=== PATIENT | female | born 1995 | race Caucasian/White ===

== ENCOUNTER 2016-08-31 07:25 | Emergency (ER) | payer OTHER ==
[2016-08-31 08:18] LABS: BILIRUBIN,URINE NEGATIVE (NEGATIVE)
[2016-08-31] MEDS ORDERED: CYCLOBENZAPRINE 10 MG TABLET PO STA (08:18)
[2016-08-31] MEDS ORDERED: LIDOCAINE PATCH 5% TOP STA (08:18)
[2016-08-31 08:21] LABS: UA w/ MICROSCOPIC CHARGE YES
[2016-08-31] MEDS ORDERED: LIDOCAINE PATCH 5% TOP ONE (08:21)
[2016-08-31] MEDS ORDERED: CYCLOBENZAPRINE 10 MG TABLET PO ONE (08:21)
[2016-08-31 08:22] LABS: HCG UR QUAL NEGATIVE
--- NOTE | 2016-08-31 08:28 | ED Physician Documentation ---
History of Present Illness - Stated complaint Stated Complaint: BACK PAIN - Chief complaint Chief Complaint: General - Additonal information Additional information: hx from pt 21 f insidious onet very low back pain L > R yesterday worsening since not relieved with motrin and papa no injury or lifting no fever no abd pain no dysuria hematuria no incont no saddle anesthesia no LE numbness weakness Review of Systems Constitutional: denies: Fever Cardiac: denies: Chest pain / pressure GI: denies: Abdominal Pain : denies: Dysuria, Incontinent, Hematuria, Now EGA Musculoskeletal: reports: Back pain Neurologic: denies: Focal weakness, Numbness Immunocompromised: denies: Immunocompromised PD PAST MEDICAL HISTORY - Past Medical History Cardiovascular: None Respiratory: None Neuro: None GI: None [employer] MANAGER: None : None HEENT: None Psych: None Musculoskeletal: None Derm: None, Other - Past Surgical History Past Surgical History: No - Present Medications Home Medications: Ambulatory Orders Medication Instructions Recorded Confirmed Cyclobenzaprine [Flexeril] 10 mg PO TID PRN #20 tablet 08/31/16 Etonogestrel/Ethinyl Estradiol 1 vag ring VG ONCE 08/31/16 08/31/16 [Nuvaring Vaginal Ring] Ibuprofen [Motrin] 400 mg PO Q6H PRN #30 tablet 08/31/16 Lidocaine Patch 5% [Lidoderm Patch] 1 each TOP DAILY PRN #10 patch 08/31/16 - Allergies Allergies/Adverse Reactions: Allergies Allergy/AdvReac Type Severity Reaction Status Date / Time No Known Drug Allergies Allergy Verified 08/31/16 07:33 - Social History Does the pt smoke?: No Smoking Status: Never smoker Does the pt drink ETOH?: No Does the pt have substance abuse?: No - Immunizations Immunizations are current?: Yes PD ED PE NORMAL - Vitals Vital signs reviewed: Yes - Neck Neck: Supple, no meningeal sign - Cardiac Cardiac: RRR - Respiratory Respiratory: No respiratory distress, Clear bilaterally - Abdomen Abdomen: Soft, Non tender - Back Back: No spinal TTP (and no focal redness swelling warmth, TTP soft tissue low lumabr near post iliac spine carlton L > R, limited ROM ext rotation), Other - Neuro Neuro: No motor deficit, No sensory deficit, Other (neg SLR, no clonus, denies saddle anesthesia) Results - Vitals Vitals: Vital Signs - 24 hr 05/16/17 07:30 Temperature 36.2 C L Heart Rate 77 Respiratory 16 Rate Blood Pressure 133/81 H O2 Saturation 100 Oxygen O2 Source Room air - Labs Labs: Laboratory Tests 08/31/16 08:12 Urine Color YELLOW Urine Clarity HAZY Urine pH 6.0 Ur Specific [place] <=1.005 Urine Protein NEGATIVE Urine Glucose (UA) NEGATIVE Urine Ketones NEGATIVE Urine Occult Blood TRACE-LYSE Urine Nitrite NEGATIVE Urine Bilirubin NEGATIVE Urine Urobilinogen 0.2 (NORMAL) Ur Leukocyte Esterase SMALL H Urine RBC 0-5 Urine WBC 6-10 H Ur Squamous Epith Cells MANY Squamous H Urine Bacteria Moderate H Ur Microscopic Review INDICATED Urine Culture Comments NOT INDICATED Urine HCG, Qual NEGATIVE PD MEDICAL DECISION MAKING - ED course ED course: seems to be atraumatic low back muscular pain with no red flags explained to pt why I do not think imaging will help UA no blood not a clean catch - doubt infection HCG neg Departure - Departure Disposition: 01 Home, Self Care Clinical Impression: Back pain Qualifiers: Back pain location: low back pain Chronicity: acute Back pain laterality: bilateral Sciatica presence: without sciatica Qualified Code(s): M54.5 - Low back pain Condition: Good Instructions: ED Neck Back Pain General Follow-Up: Rich Gilmore ARNP [Primary Care Provider] - (for a recheck if not better in 2 days) Prescriptions: Cyclobenzaprine [Flexeril] 10 mg PO TID PRN #20 tablet PRN Reason: Spasms Lidocaine Patch 5% [Lidoderm Patch] 1 each TOP DAILY PRN #10 patch PRN Reason: Pain Ibuprofen [Motrin] 400 mg PO Q6H PRN #30 tablet PRN Reason: Pain Comments: Continue the motrin Also take the muscle relaxant flexeril and use a lidocaine patch for up to 12 hr a day Follow up with your PMD if not better Return to the ER of worse - especially if worsening pain, fever, numbness or weakness, leaking urine Please follow up with your PMD to get your blood pressure rechecked - it was high today
[2016-08-31 08:36] LABS: UR CULTURE IF IND NOT INDICATED
[2016-08-31] MEDS ORDERED: oxyCOD/ACETAMIN 5 MG/325 MG TABLET PO STA (08:47)
[2016-08-31] MEDS ORDERED: oxyCOD/ACETAMIN 5 MG/325 MG TABLET PO ONE (08:55)
[2016-08-31 09:26] VITALS: BP 117/71
== END 2016-08-31 09:29 | disposition home or self-care (01) ==
LOC: ED 07:25
DX: M54.5 Low back pain (principal)
CPT/HCPCS: 81001; 81025; 99283; A9270; 81003; 87086

== ENCOUNTER 2016-09-08 18:53 | Outpatient (CLI) | payer OTHER ==
--- NOTE | 2016-09-09 17:41 | Ultrasound Report ---
PELVIC ULTRASOUND: 09/08/2016 CLINICAL HISTORY: Pelvic and perineal pain. TECHNIQUE: Transabdominal pelvic ultrasound performed for global evaluation. Real-time scanning per formed and static images obtained. Uterus measures 6.6 cm x 3.4 cm x 4.1 cm for a volume of 48.1 mL. Endometrial echo complex measures 4 mm. There was a mild bulbous prominence of the inferior half of the uterus with possibly some mild anterior displacement of the endometrial echo complex. This is a nonspecific finding. It may repre sent a normal variation, but cannot exclude a subtle sign of a fibroid. Suggest if possible, a trans vaginal examination for further evaluation. Right ovary measures 3.0 cm x 1.4 cm x 1.7 cm for a volume of 3.6 mL. Left ovary measures 2.8 cm x 1 .3 cm x 1.2 cm for a volume of 2.2 mL. Ovaries bilaterally appear normal. IMPRESSION: EQUIVOCAL FINDING IS NOTED IN REGARD TO A FIBROID IN THE LOWER UTERINE SEGMENT. IF POSS IBLE, RECOMMEND A TRANSVAGINAL ULTRASOUND FOR FURTHER EVALUATION. JOB #: [id number] EXT JOB #:[id number]
== END 2016-09-08 18:54 | disposition home or self-care (01) ==
LOC: DI 18:53
PROVIDERS: ATTEND Registered Nurse Diabetes Educator
DX: R10.2 Pelvic and perineal pain (principal)
CPT/HCPCS: 76856

== ENCOUNTER 2020-05-06 16:39 | Outpatient (CLI) | payer OTHER ==
--- NOTE | 2020-05-06 18:29 | MRI Report ---
PROCEDURE: Brain W/O INDICATIONS: MIGRAINE TECHNIQUE: Noncontrast axial T1 spin echo, axial T2 fast spin echo, sagittal and axial FLAIR, coronal T2 fast sp in echo, axial gradient echo, axial diffusion and ADC through the brain. COMPARISON: None. FINDINGS: Image quality: Diagnostic, with note made of motion artifact. CSF Spaces: Basal cisterns are patent. No extra-axial fluid collections. Ventricles are normal in size and shape. Brain: No intracranial masses or hemorrhage. [place]/white matter interface is normal. Brainstem appe ars normal. Diffusion-weighted images demonstrate no acute ischemic insult. No chronic ischemic ins ults. Normal intravascular flow voids are present. Skull and face: Calvarium has normal marrow signal. Orbits appear normal. Sinuses: Sinuses and mastoids are clear. IMPRESSION: A cause of migraine headache cannot be seen on these images. Reviewed by: Amanuel Gandara MD on 05/06/2020 5:27 PM [facility] Approved by: Amanuel Gandara MD on 05/06/2020 5:27 PM [facility] Station ID: [id number]
== END 2020-05-06 16:40 | disposition home or self-care (01) ==
LOC: DI 16:39
PROVIDERS: ATTEND Nurse Practitioner Family
DX: G43.909 Migraine, unspecified, not intractable, without status migrainosus (principal)

== ENCOUNTER 2021-06-03 23:31 | Emergency (ER) | payer OTHER ==
--- NOTE | 2021-06-04 00:31 | ED Physician Documentation ---
History of Present Illness - Stated complaint Stated Complaint: HEADACHE/NAUSEA - Chief complaint Chief Complaint: Neuro - History obtained from History obtained from: Patient - Additonal information Additional information: The patient comes to the emergency department with chief complaint of sharp pain in her right methodist that started tonight awaken her from sleep. She states that she has a longstanding history of migraines and sees a neurologist in [place], but this does not feel like her usual migraines. Patient states her usual migraines involve a global headache. The patient states that this pain was very focused and almost felt as though it was coming from a tooth but she states that it was deeper and more felt more like it was inside of her head. She states she has not had any trouble with her teeth, and denies any TMJ issues. The patient states that she had some nausea along with the symptoms. She states that the pain is resolving now and that after few minutes, she was a ble to speak normally again. She is otherwise healthy. No other complaints at this time. No recent head trauma. Review of Systems Ten Systems: 10 systems reviewed and negative Constitutional: reports: Reviewed and negative Eyes: reports: Reviewed and negative Ears: reports: Reviewed and negative Nose: reports: Reviewed and negative Throat: reports: Reviewed and negative Cardiac: reports: Reviewed and negative Respiratory: reports: Reviewed and negative GI: reports: Reviewed and negative : reports: Reviewed and negative Skin: reports: Reviewed and negative Musculoskeletal: reports: Reviewed and negative Neurologic: reports: Difficulty speaking, Headache Psychiatric: reports: Reviewed and negative Endocrine: reports: Reviewed and negative Immunocompromised: reports: Reviewed and negative PD PAST MEDICAL HISTORY - Past Medical History Cardiovascular: None Respiratory: None GI: None LAB CLERK: None : None HEENT: None Psych: None Musculoskeletal: None Derm: None, Other - Past Surgical History Past Surgical History: No - Present Medications Home Medications: Ambulatory Orders Medication Instructions Recorded Confirmed Etonogestrel/Ethinyl Estradiol 1 vag ring VG ONCE 08/31/16 06/03/21 [Nuvaring Vaginal Ring] Valacyclovir HCl [Valtrex] 500 mg PO BID 06/03/21 06/03/21 - Allergies Allergies/Adverse Reactions: Allergies Allergy/AdvReac Type Severity Reaction Status Date / Time No Known Drug Allergies Allergy Verified 06/03/21 23:38 - Social History Does the pt smoke?: No Smoking Status: Never smoker Does the pt drink ETOH?: No Does the pt have substance abuse?: No - Immunizations Immunizations are current?: Yes PD ED PE NORMAL - Vitals Vital signs reviewed: Yes - General General: Alert and oriented X 3, No acute distress, Well developed/nourished, Other (The patient appears slightly anxious but otherwise no apparent distress) - HEENT HEENT: Atraumatic, PERRL, EOMI, Moist mucous membranes - Neck Neck: Supple, no meningeal sign - Cardiac Cardiac: RRR, No murmur - Respiratory Respiratory: No respiratory distress, Clear bilaterally - Derm Derm: Normal color, Warm and dry, No rash - Extremities Extremities: No deformity - Neuro Neuro: Alert and oriented X 3, dag coater 2-12 intact, No motor deficit, No sensory deficit, Normal speech, Other (NIH stroke scale score is 0) - Psych Psych: Normal mood, Normal affect Results - Vitals Vitals: Vital Signs - 24 hr 06/03/21 23:35 Temperature 36.5 C Heart Rate 90 Respiratory 18 Rate Blood Pressure 134/107 H O2 Saturation 99 Oxygen O2 Source Room air PD MEDICAL DECISION MAKING - ED course Complexity details: considered differential, d/w patient ED course: I discussed with the patient that she is very low risk for a stroke, and that most of her symptoms are not indicative of a stroke. It is not clear why she had the word finding difficulty, although in the setting of migraines, it is Possible that the symptoms represent an atypical migraine. We have discussed the possibility of getting CT scan tonight, although this is unlikely at this point to show anything specific. We do not have MRI tonight. The patient does not want to get CT tonight. We have discussed that she can call her neurologist office in the morning and see if she can speak to the neurologist about her symptoms and see if they would like her to get MRI, be seen in their office, or if they will simply offer reassurance. The patient is only taking Botox at this time for her migraines and does not take anything else. She does not wish symptomatic treatment in the emergency department, and would like to go home. We have discussed the usual indications for return. Departure - Departure Disposition: Home, Self Care Clinical Impression: Headache Qualifiers: Headache type: unspecified Headache chronicity pattern: episodic headache Intractability: not intractable Qualified Code(s): R51.9 - Headache, unspecified Condition: Stable Instructions: ED Headache Migraine Comments: As we discussed, you are very low risk for a stroke, and in general, strokes are not painful, particularly transient strokes. Additionally, you have generalized weakness but no focused weakness on one side or the other or in one extremity or the other. It is not clear what is caused her pain tonight, or what has caused the word finding difficulty. Sometimes atypical migraines can cause these sorts of symptoms, but the best plan is to call your neurologist first thing in the morning to determine whether you need to be seen by the neurologist or whether They recommend MRI. We have discussed the possibility of having a CT scan done tonight, but at this point in time, it is unlikely to show anything specific. Please get plenty of rest at home. If you develop the word finding difficulty again, or if you develop unilateral weakness, please return to the emergency department immediately.
[2021-06-04 00:38] VITALS: BP 121/75
== END 2021-06-04 00:41 | disposition home or self-care (01) ==
LOC: ED 23:31
DX: R51.9 Headache, unspecified (principal)
CPT/HCPCS: 99281; 99284

== ENCOUNTER 2022-09-16 15:16 | Outpatient (CLI) | payer OTHER ==
[2022-09-16 15:43] LABS: BASOPHILS % (AUTO) 0.5 %; EOSINOPHILS % (AUTO) 0.7 %; HCT - HEMATOCRIT 41.8 % (37.0-47.0); HGB - HEMOGLOBIN 14.4 g/dL (12.0-16.0); LYMPHOCYTES # (AUTO) 1.5 10^3/uL (1.5-3.5); LYMPHOCYTES % (AUTO) 26.3 %; MEAN CORPUSCULAR HEMOGLOBIN 29.7 pg (27.0-31.0); MEAN CORPUSCULAR HGB CONC 34.4 g/dL (32.0-36.0); MEAN CORPUSCULAR VOLUME 86.2 fL (81.0-99.0); MEAN PLATELET VOLUME 11.1 fL (7.9-10.8); MONOCYTES # (AUTO) 0.5 10^3/uL (0.0-1.0); MONOCYTES % (AUTO) 8.5 %; NEUTROPHILS # (AUTO) 3.5 10^3/uL (1.5-6.6); NEUTROPHILS % (AUTO) 63.8 %; PLT - PLATELET COUNT 181 10^3/uL (130-450); RED BLOOD COUNT 4.85 10^6/uL (4.20-5.40); RED CELL DISTRIBUTION WIDTH 13.2 % (12.0-15.0); WHITE BLOOD COUNT 5.6 x10^3/uL (4.8-10.8)
[2022-09-16 15:46] LABS: ALBUMIN 4.8 g/dL (3.2-5.5); ALBUMIN/GLOBULIN RATIO 1.6 (1.0-2.2); BILIRUBIN,TOTAL 0.5 mg/dL (0.2-1.0); CALCIUM 9.2 mg/dL (8.5-10.3); CREATININE 0.7 mg/dL (0.4-1.0); POTASSIUM 3.8 mmol/L (3.5-5.0); TOTAL PROTEIN 7.8 g/dL (6.7-8.2)
[2022-09-16 16:03] LABS: THYROID STIMULATING HORMONE 0.76 uIU/mL (0.34-5.60)
== END 2022-09-16 15:17 | disposition home or self-care (01) ==
LOC: LAB 15:16
PROVIDERS: ATTEND Nurse Practitioner Family
DX: Z00.00 Encounter for general adult medical examination without abnormal findings (principal); G43.909 Migraine, unspecified, not intractable, without status migrainosus
CPT/HCPCS: 36415; 80053; 84443; 85025; 85651

== ENCOUNTER 2023-02-21 12:20 | Outpatient (CLI) | payer OTHER ==
--- NOTE | 2023-02-21 16:52 | Ultrasound Report ---
PROCEDURE: Pelvic w/Transvaginal INDICATIONS: IUD PLACEMENT TECHNIQUE: Real-time scanning was performed of the pelvic organs, with image documentation. Additional endovagi nal scanning was necessary due to incomplete visualization of the adnexal and endometrial structures by transabdominal scanning. COMPARISON: None. FINDINGS: Uterus: Uterus is retroverted and normal in size at 7.3 x 3.5 x 4.4 cm. The myometrium is homogeneo us. The endometrium measures 2.7 mm in combined thickness. The IUD is appropriately positioned. Ovaries: The right ovary measures 2.7 x 2.4 x 2.4 cm, with a calculated ovarian volume of 8.1 cc. T he left ovary measures 2.5 x 1.3 x 3 cm, with a calculated ovarian volume of 5.1 cc. The ovaries hav e a normal sonographic appearance. Less than 12 follicles can be seen in each ovary. No adnexal mas ses are seen. No cystic lesions measuring greater than 3 cm. Other: No pathologic free abdominal or pelvic fluid. IMPRESSION: 1. IUD is appropriately positioned. 2. Normal pelvic ultrasound. Reviewed by: Di Hart MD on 02/21/2023 4:50 PM PST Approved by: Di Hart MD on 02/21/2023 4:50 PM PST Station ID: [id number]
== END 2023-02-21 12:21 | disposition home or self-care (01) ==
LOC: DI 12:20
PROVIDERS: ATTEND Nurse Practitioner Family
DX: Z30.431 Encounter for routine checking of intrauterine contraceptive device (principal)